=== PATIENT | male | born 1980 | race Hispanic/Latino ===

== ENCOUNTER 2018-01-29 10:27 | Day surgery (SDC) | payer MEDICAID ==
[~2018-01-29] VITALS: Ht 167.6 cm; Wt 66.2 kg
[2018-01-29 11:19] VITALS: BP 114/73
== END 2018-01-29 11:31 | disposition home or self-care (01) ==
LOC: DAH 10:27 → SUH 10:27 → ENDO 11:31
PROVIDERS: ATTEND Internal Medicine Gastroenterology
DX: K21.9 Gastro-esophageal reflux disease without esophagitis (principal); Z53.9 Procedure and treatment not carried out, unspecified reason; I10 Essential (primary) hypertension; F41.9 Anxiety disorder, unspecified; F32.9 Major depressive disorder, single episode, unspecified; F17.210 Nicotine dependence, cigarettes, uncomplicated; Z90.49 Acquired absence of other specified parts of digestive tract; Z79.899 Other long term (current) drug therapy